=== PATIENT | male | born 1990 | race Caucasian/White ===

== ENCOUNTER 2016-12-26 01:36 | Emergency (ER) | payer BC ==
[2016-12-26] MEDS ORDERED: Ibuprofen 800 MG TAB ONE (01:55)
--- NOTE | 2016-12-26 07:51 | RAD ---
CHEST PA AND LATERAL: Date: 12/26/16 HISTORY: 26-year-old male with cough, general aches, chills, fever, nausea, and vomiting. COMPARISON: 07/16/16. FINDINGS: Heart size is normal. The lungs are clear. No pneumonia, edema, or pleural effusion. IMPRESSION: No acute intrathoracic disease. POS: [facility]
== END 2016-12-26 03:15 | disposition home or self-care (01) ==
LOC: ERS 01:36
DX: J18.9 Pneumonia, unspecified organism (principal); F41.9 Anxiety disorder, unspecified; F32.9 Major depressive disorder, single episode, unspecified
CPT/HCPCS: 71020

== ENCOUNTER 2018-02-19 10:01 | Emergency (ER) | payer BC | END 2018-02-19 10:32 | disposition home or self-care (01) | LOC: ERS 10:01 | DX: R42 Dizziness and giddiness (principal); F41.9 Anxiety disorder, unspecified; F32.9 Major depressive disorder, single episode, unspecified | CPT/HCPCS: 99281 ==

== ENCOUNTER 2021-10-08 16:53 | Emergency (ER) | payer BC ==
[2021-10-08] MEDS ORDERED: Lidocaine 1% PF 5 ML VIAL ONE (17:31)
[2021-10-08] MEDS ORDERED: Boostrix 0.5 ML (Tdap) VIAL ONE (17:31)
[2021-10-08] MEDS ORDERED: Bacitracin 1 PK ONE (19:17)
== END 2021-10-08 19:27 | disposition home or self-care (01) ==
LOC: ERS 16:53
DX: S61.011A Laceration without foreign body of right thumb without damage to nail, initial encounter (principal); W26.8XXA Contact with other sharp object(s), not elsewhere classified, initial encounter; Z87.442 Personal history of urinary calculi; Z23 Encounter for immunization
CPT/HCPCS: 12001; 90471; 90715

== ENCOUNTER 2021-10-16 01:44 | Emergency (ER) | payer BC | END 2021-10-16 02:34 | disposition home or self-care (01) | LOC: ERS 01:44 | DX: S61.011D Laceration without foreign body of right thumb without damage to nail, subsequent encounter (principal); Z87.442 Personal history of urinary calculi ==

== ENCOUNTER 2022-12-19 21:19 | Emergency (ER) | payer BC ==
[2022-12-19 22:38] LABS: SARS-CoV-2 NAA Rapid Test Not Detected (NotDetected)
[2022-12-19] MEDS ORDERED: Ondansetron ODT 4 MG TAB ONE (23:52)
[2022-12-19] MEDS ORDERED: Ibuprofen 200 MG TAB ONE (23:52)
== END 2022-12-20 01:06 | disposition home or self-care (01) ==
LOC: ERS 21:19
DX: R11.2 Nausea with vomiting, unspecified (principal); Z20.822 Contact with and (suspected) exposure to COVID-19
CPT/HCPCS: 99284; Q0162